=== PATIENT | female | born 1990 | race Hispanic/Latino ===

== ENCOUNTER 2021-12-25 14:57 | Emergency (ER) | payer MEDICAID ==
[~2021-12-25] VITALS: Ht 165.1 cm; Wt 88.5 kg
[2021-12-25 15:43] LABS: BASOPHILS % (AUTO) 0.6 % (0.0-5.0); HEMATOCRIT 41.9 % (36-48); LYMPHOCYTES % (AUTO) 56.2 % (21.0-51.0); MEAN CORPUSCULAR HEMOGLOBIN 23.8 pg (27.0-33.0); MEAN CORPUSCULAR HGB CONC 29.4 g/dL (32.0-36.0); MEAN CORPUSCULAR VOLUME 81.2 fL (79-99); NEUTROPHILS % (AUTO) 31.2 % (40.0-77.0); PLATELET COUNT (AUTO) 355 K/uL (130-400); RED BLOOD CELL COUNT(AUTO) 5.16 MIL/uL (4.00-5.50); RED CELL DISTRIBUTION WIDTH 17.3 % (11.0-15.5); WHITE BLOOD COUNT (AUTO) 5.2 K/uL (4.8-10.8)
[2021-12-25 15:55] LABS: CREATININE 0.9 mg/dL (0.5-1.5); POTASSIUM 4.6 mmol/L (3.5-5.1)
[2021-12-25 16:00] LABS: ALBUMIN 3.7 g/dL (3.5-5.0); BILIRUBIN,TOTAL 0.3 mg/dL (0.2-1.0)
[2021-12-25] MEDS ORDERED: HYDR-3421 PO (16:54)
[2021-12-25] MEDS ORDERED: LORAZEPAM 2 MG/ML 1 ML VIAL IVP ONE (17:30)
[2021-12-25 18:00] VITALS: BP 120/76
== END 2021-12-25 18:01 | disposition home or self-care (01) ==
LOC: EDH 14:57
DX: R00.1 Bradycardia, unspecified (principal); R00.2 Palpitations; F41.9 Anxiety disorder, unspecified; E11.9 Type 2 diabetes mellitus without complications; E03.9 Hypothyroidism, unspecified; Z88.0 Allergy status to penicillin
CPT/HCPCS: 36415; 71045; 80053; 84484; 85025; 93005; 96374; 99285; J2060

== ENCOUNTER 2022-06-17 23:59 | Emergency (ER) | payer MEDICAID ==
[~2022-06-17] VITALS: Ht 165.1 cm; Wt 95.3 kg
[~2022-06-17 23:59] MED LIST: HYDR-3421 PO
[2022-06-18] MEDS ORDERED: PANTOPRAZOLE 40 MG/VIAL ONE (00:08)
[2022-06-18] MEDS ORDERED: SUCRALFATE 1 GM TABLET ONE (00:08)
[2022-06-18] MEDS ORDERED: KETOROLAC 30MG VIAL (30MG/ML) ONE (00:22)
[2022-06-18] MEDS ORDERED: ONDANSETRON 4MG INJ ONE (00:22)
[2022-06-18] MEDS ORDERED: KETOROLAC 30MG VIAL (30MG/ML) IVP ONE (00:30)
[2022-06-18] MEDS ORDERED: PANTOPRAZOLE 40 MG/VIAL IVP ONE (00:30)
[2022-06-18 00:38] LABS: BASOPHILS % (AUTO) 0.1 % (0.0-5.0); EOSINOPHILS % (AUTO) 0.8 % (0.0-8.0); HEMATOCRIT 37.9 % (36-48); LYMPHOCYTES % (AUTO) 7.8 % (21.0-51.0); MEAN CORPUSCULAR HEMOGLOBIN 27.5 pg (27.0-33.0); MEAN CORPUSCULAR HGB CONC 32.5 g/dL (32.0-36.0); MEAN CORPUSCULAR VOLUME 84.6 fL (79-99); MONOCYTES % (AUTO) 5.7 % (3.0-13.0); NEUTROPHILS % (AUTO) 85.4 % (40.0-77.0); PLATELET COUNT (AUTO) 224 K/uL (130-400); RED BLOOD CELL COUNT(AUTO) 4.48 MIL/uL (4.00-5.50); RED CELL DISTRIBUTION WIDTH 13.4 % (11.0-15.5); WHITE BLOOD COUNT (AUTO) 8.4 K/uL (4.8-10.8)
[2022-06-18 00:48] LABS: CREATININE 0.9 mg/dL (0.5-1.5); POTASSIUM 3.6 mmol/L (3.5-5.1)
[2022-06-18 00:54] LABS: ALBUMIN 3.8 g/dL (3.5-5.0); TOTAL PROTEIN, SERUM 7.9 g/dL (6.0-8.3)
[2022-06-18] MEDS ORDERED: ONDANSETRON 4MG INJ IVP ONE (01:00)
[2022-06-18] MEDS ORDERED: SUCRALFATE 1 GM TABLET PO SCH (01:00)
[2022-06-18 01:35] LABS: APPEARANCE,URINE CLEAR (CLEAR); BILIRUBIN,URINE NEGATIVE (NEGATIVE); COLOR,URINE YELLOW (YELLOW); GLUCOSE, URINE (UA) NEGATIVE (NEGATIVE); KETONES,URINE 10 mg/dL (NEGATIVE); LEUKOCYTE ESTERASE ,URINE NEGATIVE Leu/uL (NEGATIVE); NITRATE,URINE NEGATIVE (NEGATIVE); OCCULT BLOOD,URINE NEGATIVE (NEGATIVE); PH,URINE 5.5 (5.0-8.0); PROTEIN,URINE 30 mg/dL (NEGATIVE); UROBILINOGEN,URINE 0.2 mg/dL (0.2-1.0)
[2022-06-18 01:38] LABS: HCG,QUALITATIVE URINE NEGATIVE (NEGATIVE)
[2022-06-18] MEDS ORDERED: MAG/ALUM/SIMETH 30 ML UDCUP ONE (02:55)
[2022-06-18] MEDS ORDERED: LIDOCAINE HCL 2% VISCOUS 15 ML UDCUP ONE (02:55)
[2022-06-18] MEDS ORDERED: DICYCLOMINE HCL 10 MG/5 ML ML PO ONE (02:55)
[2022-06-18] MEDS ORDERED: ACETAMINOPHEN 500 MG TABLET ONE (02:59)
[2022-06-18] MEDS ORDERED: MAG/ALUM/SIMETH 30 ML UDCUP PO ONE (03:00)
[2022-06-18] MEDS ORDERED: LIDOCAINE HCL 2% VISCOUS 15 ML UDCUP PO ONE (03:00)
[2022-06-18] MEDS ORDERED: DICYCLOMINE HCL 10 MG/5 ML ML PO SCH (03:00)
[2022-06-18] MEDS ORDERED: ACETAMINOPHEN 500 MG TABLET PO ONE (03:30)
[2022-06-18] MEDS ORDERED: COMP10 PO (04:03)
[2022-06-18] MEDS ORDERED: CARAL PO (04:03)
[2022-06-18 04:08] VITALS: BP 136/76
== END 2022-06-18 04:22 | disposition home or self-care (01) ==
LOC: EDH 23:59
DX: K44.9 Diaphragmatic hernia without obstruction or gangrene (principal); K21.9 Gastro-esophageal reflux disease without esophagitis; E03.9 Hypothyroidism, unspecified; E11.9 Type 2 diabetes mellitus without complications; E66.9 Obesity, unspecified; Z88.0 Allergy status to penicillin; Z68.34 Body mass index [BMI] 34.0-34.9, adult
CPT/HCPCS: 99285; 82150; 84484; 80053; 83690; 85025; 81003; 81025; 36415; 96374; 76705; 71045; 96375; 93005; J2405; J1885; S0164; C9113

== ENCOUNTER → 2022-08-28 | Outpatient (CLI) | payer MEDICAID ==
[~2022-08-28] MED LIST changes: +CARAL PO; +COMP10 PO
== END | disposition home or self-care (01) ==
LOC: RAH 08:22
PROVIDERS: ATTEND Internal Medicine Gastroenterology
DX: K44.9 Diaphragmatic hernia without obstruction or gangrene (principal)
CPT/HCPCS: 74240